=== PATIENT | female | born 1945 | race Caucasian/White ===

== ENCOUNTER 2024-12-15 08:59 | Outpatient (AMB) | payer OTHER, SELFPAY ==
--- NOTE | 2024-12-15 09:02 | MHC.OFFVIS ---
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 The tremors are roger hands with posture action and rest. she drops things from her hands , has trouble with writing and other daily activities. But she manages to function. she has rheumatoid arthritis. No change in voice . No head injury . No exposure of reglan or any antipsychotics. Gait- slow and had back pain [facility] Medical History (Updated 12/15/24 @ 11:00 by Ani Wadsworth MD) Essential and other specified forms of tremor Hyperthyroidism Bone spur Hernia Rheumatoid arthritis Surgical History (Updated 12/15/24 @ 09:[address] MA) S/P arthroscopy of left shoulder S/P tonsillectomy Hx of fusion of cervical spine H/O: hysterectomy Social History (Updated 12/15/24 @ 09:[address] MA) Patient Tobacco Use Status: Former Tobacco user Physical Exam Vital Signs: Last Vital Signs Pulse 90 12/15/24 09:04 BP 122/74 12/15/24 09:04 Pulse Ox 96 12/15/24 09:04 Oxygen Delivery Method Room Air 12/15/24 09:04 BMI result Body Mass Index 26.3 Const General: cooperative and comfortable Nutritional Appearance: average body habitus Orientation/consciousness: patient oriented x3 Neuro Other: No ROM neck mild lower lip and chin tremors Rest tremors right UE Roger action and postural R>L tremors No cog wheel rigidity FFM and foot taps - good General: patient oriented x3, tone normal, moves all extremities and no focal motor deficits Cranial nerves: Yes Bilaterally intact EOM present, Yes Nystagmus not present, Yes Normal facial strength present and Yes Midline tongue present Cognition (Neuro): normal cognition Gait exam (Neuro): Antalgic gait present Motor exam (neuro): 5/5 motor strength present throughout and Normal motor muscle tone present throughout Deep tendon reflexes (DTR's): Right triceps reflex intensity grade: 1+, Left triceps reflex intensity grade: 1+, Rt Biceps (C5, C6): 1+, Left biceps reflex intensity grade: 1+, Right brachioradialis reflex intensity grade: 1+, Left brachioradialis reflex intensity grade: 1+, Right patellar reflex intensity grade: 1+ and Left patellar reflex intensity grade: 1+ Coordination: [id number] test normal Assessment & Plan Assessment & Plan (1) Essential and other specified forms of tremor: Comment: no evidence of parkinsons Code(s): G25.0 - Essential tremor; G25.2 - Other specified forms of tremor Category: Medical Plan I will trial her on propranolol 10 mg bid . side effects discussed will consider occupational therapy Medications: New propranolol 10 mg PO BID 60 tabs 3RF propranolol 10 mg PO BID 60 tabs 3RF Coding Level of Care Code New Pt Level 4 (05017) Diagnoses Essential and other specified forms of tremor G25.0; G25.2 BFADL Questionnaire: Cut food with a knife and fork: 2 - Able to do activity with a little effort, Use a spoon to drink soup: 3 - Able to do activity with a lot of effort, Hold a cup of tea: 2 - Able to do activity with a little effort, Pour milk from a bottle or carton: 2 - Able to do activity with a little effort, Wash and dry dishes: 3 - Able to do activity with a lot of effort, [place] your teeth: 2 - Able to do activity with a little effort, Use a handkerchief to blow your nose: 2 - Able to do activity with a little effort, Use the lavoratory: 2 - Able to do activity with a little effort, Wash your face and hands: 2 - Able to do activity with a little effort, Tie your shoelaces: 2 - Able to do activity with a little effort, Do up buttons: 2 - Able to do activity with a little effort, Do up a zip: 2 - Able to do activity with a little effort, Write a letter: 3 - Able to do activity with a lot of effort, Put a letter in an envelope: 3 - Able to do activity with a lot of effort, Hold and read a newspaper: 4 - Cannot do the activity by yourself, Dial a telephone: 2 - Able to do activity with a little effort, Make yourself understood on a telephone: 1 - Able to do activity without difficulty, Watch television: 1 - Able to do activity without difficulty, elevator supervisor your change in a shop: 3 - Able to do activity with a lot of effort, Inset an electrical plug into a socket: 3 - Able to do activity with a lot of effort, Unlock your front door with a scott: 2 - Able to do activity with a little effort, Walk up and down stairs: 2 - Able to do activity with a little effort, Get up out of an armchair: 3 - Able to do activity with a lot of effort and Carry a full shopping ba - Able to do activity with a lot of effort
[2024-12-15 09:04] VITALS: BP 122/74; PULSE 90; O2SAT 96; BMI 26.3
--- OUTSIDE RECORDS SUMMARY | 2024-12-15 09:19 | XMS_ITS | Patient Health Record ---
Author Organization [facility] Tanesha hal [place] Address [address] [place] [address] Care Team Providers Care Circulation Librarian Name Role Phone Dl Ramos MD Primary Care Provider UnavailElvira Coombs Unavailable [phone] Allergies No Known Allergies Reason For Referral Diagnosis 1 Tinea unguium (B35.1 ) Diagnosis 2 Ingrown nail (L60.0) Diagnosis 3 Xerosis of skin (L85 .3) Diagnosis 4 Pain in right toe(s) (M79.674) Diagnosis 5 Pain in left toe(s) (M79.675) Diagnosis 6 Other hammer toe(s) (acquired), left foot (M20.42) Diagnosis 7 Bunionette of left f oot (M21.622) Diagnosis 8 Rheumatoid arthritis with rheumatoid factor of right ankle and foot without organ or systems involvement (M05.771) Diagnosis 9 Exostosis (M89.8X9) Diagnosis 10 Right foot pain (M79 .671) Diagnosis 11 Ganglion, left ankle and foot (M67.472) Referring Provider First Name Dl Referring Provider Last Name Richard [facility]erred Provider Elvira Bangura Referred Address [address] [place], [place],[address],[place] Referred Provider Specialty Podiatry Referral Priority Routine Medications Medication SIG (Take, Route, Frequency, Duration) Notes Start Date End Date Status methIMAzole 5 MG 1/2 tablet Orally On ce a day Active Diclofenac Sodium 1 % as directed Transd ermal Twice a day; Duration: 30 days Active Humira Pen 40 MG/0.8ML as directed Subcutaneous Active Lidocaine 5 % 1 application as nee ded Externally Three times a day 02/23/2024 Active Diclofenac Sodium 1 % 1 application Exte rnally 2-4 grams BID not to exceed 8 grams; Duration: 90 days Active PreserVision AREDS 2 Active Diclofenac Sodium 1 % 1 application Exte rnally Twice a day; Duration: 90 days Not-Taking Ammonium Lactate 12 % 1 application Exte rnally to affected areas of dry skin to feet except for between the toes Twice a day; Duration: 30 days Active Tylenol 8 Hour 650 MG 4 tablets as neede d Orally every 8 hrs Active Shaneka Allergy 180 MG 1 tablet Orally O nce a day; Duration: 30 day(s) Active Simvastatin 10 MG 1 tablet in the even ing Orally Once a day; Duration: 30 day(s) Active Omeprazole 20 MG 1 capsule 30 minutes before morning meal Orally Once a day; Duration: 30 day(s) Active Immunizations Vaccine Route Administration Date Status Comme nts COVID-19 Moderna Vaccine Unknown 12/16/2020 Administered 1st dose 06/06/2020 Second Dose: 07/04/2020 Social History Tobacco Use: Social History Observation Description Date Details (start date - stop date) Never Smoker NA - NA Tobacco use other than smoking: Question Answer Notes Are you an other tobacco user? No Tobacco Control (Standard) Question Answer Notes Tobacco use: Nonsmoker Additional Findings: Tobacco non-user Current no nsmoker AUDIT-C (Standard) Question Answer Notes Did you have a drink containing alcohol in the p ast year? No Points 0 Interpretation Negative Problems Problem Type SNOMED Code ICD Code Onset Dates Problem Status W/U Status Risk Notes Problem Acquired hammer toe of right foot (2289419222097728) Other hammer toe(s) (acquired), right foot (M20.41) Active confirmed Problem Rheumatoid arthritis (09934795) Rheumatoid arthritis with rheumatoid factor of right ankle and foot without organ or systems involvement (M05.771) Active confirmed Problem Tinea unguium (993229694) Tinea unguium (B35.1) Active confirmed Problem Localized, primary osteoarthritis of the ankle and/or foot (905547178) Arthritis of joint of lesser toe, left (M19.072) Active confirmed Problem Localized, primary osteoarthritis of the ankle and/or foot (443901415) Arthritis of joint of lesser toe, right (M19.071) Active confirmed Vital Signs Blood pressure diastolic 60 mm Hg 12/09/2024 Height 5ft 4in in 12/09/2024 Blood pressure systolic 110 mm Hg 12/09/2024 Weight 160 lbs 12/09/2024 BMI 27.46 kg/m2 12/09/2024 Procedures Procedure Date Ordered Date Performed Result Body Sit e 55178-EGKENKB NAIL, 1-5 02/23/2024 N/A 83659-QMJUWXU NAIL, 1-5 05/31/2024 N/A 07644-VISLBIZ NAIL, 1-5 08/30/2024 N/A 17787-Vkjzrlhr Plate 08/30/2024 N/A 60483-KZJSSHB NAIL, 6 OR MORE 12/09/2024 N/A Encounters Encounter Location Date Provider Diagnosis [address] [address] 02/23/2024 Elvira Black Rheumatoid arthritis flare M06.9 ; Right foot pain M79.671 ; Plantarflexion deformity of right foot M21.6X1 ; Tinea unguium B35.1 ; Pain in right toe(s) M79.674 ; Pain in left toe(s) M79.675 ; Hypertrophy of bone, left ankle and foot M89.372 ; Exostosis M89.8X9 ; 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 671 ; Osteoarthritis of right ankle and foot M19.071 ; Tinea unguium B35.1 ; Pain in right toe(s) M79.674 ; Pain in left toe(s) M79.675 ; Exostosis M89.8X9 and Xerosis of skin L85.[address] [address] 08/30/2024 Elvira Black Tinea unguium B35.1 ; Ingrown nail L60.0 ; Pain in right toe(s) M79.674 ; Pain in left toe(s) M79.675 and Xerosis of skin L85.3 [facility] [address] [place] [address] 12/09/2024 Elvira Black Tinea unguium B35.1 ; Achilles tendinitis of right lower extremity M76.61 ; Pain in right toe(s) M79.674 ; Pain in left toe(s) M79.675 ; Pain of right heel M79.671 ; Short Achilles tendon (acquired), 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 ; Achilles tendinitis of left lower extremity M76.62 ; Pain of left heel M79.672 ; Short Achilles tendon (acquired), left ankle M67.02 ; Other hammer toe(s) (acquired), right foot M20.41 ; Arthritis of joint of lesser toe, right M19.071 ; Other hammer toe(s) (acquired), left foot M20.42 ; Arthritis of joint of lesser toe, left M19.072 ; Subluxation of metatarsophalangeal joint of toe, initial encounter S93.149A and Rheumatoid arthritis with rheumatoid factor of right ankle and foot without organ or systems involvement M05.771 Assessments Encounter Date Diagnosis (ICD Code) Assessment Notes Treatment Notes Treatment Clinical Notes Section Notes 02/23/2024 Right foot pain (ICD -10 - M79.671) 02/23/2024 Rheumatoid arthritis flare (ICD-10 - M06.9) 05/31/2024 Right foot pain (ICD -10 - M79.671) 05/31/2024 Osteoarthritis of ri ght ankle and foot (ICD-10 - M19.071) 08/30/2024 Tinea unguium (ICD-1 0 - B35.1) 08/30/2024 Ingrown nail (ICD-10 - L60.0) 12/09/2024 Tinea unguium (ICD-1 0 - B35.1) 12/09/2024 Achilles tendinitis of right lower extremity (ICD-10 - M76.61) Patient Educated with: HEEL CORD STRETCHES.pdf (HEEL CORD STRETCHES.pdf ) Patient Educated with: RICE THERAPY.pdf (RICE THERAPY.pdf) 12/09/2024 Pain in right toe(s) (ICD-10 - M79.674) 02/23/2024 Plantarflexion deformity of right foot (ICD-10 - M21.6X1) 08/30/2024 Pain in right toe(s) (ICD-10 - M79.674) 05/31/2024 Tinea unguium (ICD-1 0 - B35.1) 02/23/2024 Tinea unguium (ICD-1 0 - B35.1) 05/31/2024 Pain in right toe(s) (ICD-10 - M79.674) 08/30/2024 Pain in left toe(s) (ICD-10 - M79.675) 12/09/2024 Pain in left toe(s) (ICD-10 - M79.675) 12/09/2024 Pain of right heel (ICD-10 - M79.671) 08/30/2024 Xerosis of skin (ICD -10 - L85.3) 05/31/2024 Pain in left toe(s) (ICD-10 - M79.675) 02/23/2024 Pain in right toe(s) (ICD-10 - M79.674) 02/23/2024 Pain in left toe(s) (ICD-10 - M79.675) 05/31/2024 Exostosis (ICD-10 - M89.8X9) 12/09/2024 Short Achilles tendo n (acquired), right ankle (ICD-10 - M67.01) 12/09/2024 Achilles tendinitis of left lower extremity (ICD-10 - M76.62) Patient Educated with: HEEL CORD STRETCHES.pdf (HEEL CORD STRETCHES.pdf ) Patient Educated with: RICE THERAPY.pdf (RICE THERAPY.pdf) 02/23/2024 Hypertrophy of bone, left ankle and foot (ICD-10 - M89.372) 05/31/2024 Xerosis of skin (ICD -10 - L85.3) 02/23/2024 Exostosis (ICD-10 - M89.8X9) 12/09/2024 Pain of left heel (ICD-10 - M79.672) 12/09/2024 Short Achilles tendo n (acquired), left ankle (ICD-10 - M67.02) 02/23/2024 Acquired hallux interphalangeus of left foot (ICD-10 - M20.12) 12/09/2024 Other hammer toe(s) (acquired), right foot (ICD-10 - M20.41) 02/23/2024 Rheumatoid nodules (ICD-10 - M06.30) 02/23/2024 Ganglion cyst of lef t foot (ICD-10 - M67.472) 12/09/2024 Arthritis of joint o f lesser toe, right (ICD-10 - M19.071) 12/09/2024 Other hammer toe(s) (acquired), left foot (ICD-10 - M20.42) 12/09/2024 Arthritis of joint o f lesser toe, left (ICD-10 - M19.072) 12/09/2024 Subluxation of metatarsophalangeal joint of toe, initial encounter (ICD-10 - S93.149A) 12/09/2024 Rheumatoid arthritis with rheumatoid factor of right ankle and foot without organ or systems involvement (ICD-10 - M05.771) Plan Of Treatment Pending Test Test Name Order Date [id number]-IOIUAGZ NAIL, 6 OR MORE 05/18/2020 89836-HSBGFJC NAIL, 6 OR MORE 08/17/2020 32702-TGRJHIH NAIL, 6 OR MORE 11/16/2020 23743-CXROVMR NAIL, 6 OR MORE 02/22/2021 54287-HBSPIQN NAIL, 6 OR MORE 06/04/2021 29235-BGWYCSU NAIL, 6 OR MORE 09/06/2021 58839-GXNKGLN NAIL, 6 OR MORE 12/20/2021 72015-VVYKSCU NAIL, 6 OR MORE 03/25/2022 16667-NVEDCEX NAIL, 6 OR MORE 07/01/2022 78509-HMARKZZ NAIL, 6 OR MORE 10/10/2022 83287-WAYXPTZ NAIL, 6 OR MORE 01/20/2023 17327-JMFXTES NAIL, 6 OR MORE 12/09/2024 34506-VXACDXJ NAIL, 1-5 08/30/2024 78430-PMIIHKF NAIL, 1-5 08/07/2023 73124-WZYZQHS NAIL, 1-5 11/13/2023 16890-ERWIGTU NAIL, 1-5 02/23/2024 96450-AKKPGZW NAIL, 1-5 05/31/2024 35729-Swsrjqvl Plate 08/30/2024 25118-Slpbesba Plate 01/20/2023 16174-Czbrraqm Plate Each Additional 10814- Debride <25 sq cm 03/25/2022 44613, P3102-YHCLC/INJECT, JOINT/BURSA 0 10/10/2022 Next Appt Details Provider Name:Elvira Bangura , 02/10/2025 08:00:00 AM, [address] [place], [address], Insurance Providers Payer Name Payer Address Payer Phone Subscriber Number Group Number Insured Name Patient Relationship to Insured Coverage Start Date Coverage End Date [facility] Plan [address] [place] [address] [phone] [id number] Olga Kearney Self - patient is the insured Medical (General) History Medical History History ICD Code Arthritis Diverticulosis Psoriasis/eczema Reflux ( GERD) thyroid Measles Mumps Chicken pox Supraventricular tachycardia Other hammer toe(s) (acquired), left lita t M20.42 Other hammer toe(s) (acquired), right fo ot M20.41 Rheumatoid arthritis with rh eumatoid factor of right ankle and foot without organ or systems involvement M05.771 Rheumatoid nodule M06.30 Hammer toe of right foot M20.41 Arthritis M19.90 Rheumatoid arthritis flare M06.9 Osteoarthritis of right ankle and foot M 19.071 Ganglion cyst of left foot M67.472 Surgical History Surgery Date(Month/Year) hysterectomy 1992 neck fusion 1994 hernia 2002 tonsillectomy 2007 Bone Spurs 2009
--- OUTSIDE RECORDS SUMMARY | 2024-12-15 09:20 | XMS_ITS | Clinical Summary ---
Author Organization [facility] [address] [place] [address] [place] [phone] Phone Care Team Providers Care Tsa Screener Name Role Phone Jaspal Ramos MD Primary Care Provider Allergies No known active allergies Medications adalimumab (Humira,CF, Pen) 40 mg/0.4 mL pen Inject 40 mg as directed every 14 days. - Injection 1 Active diclofenac (VOLTAREN) 1 % topical gel Apply topically as needed. - Apply externally Active hydrocortisone 2.5 % ointment APPLY TWICE DAILY TO AFFECTED AREA ON THE LEFT EAR, UNTIL IMPROVED. 3 Active ketoconazole (NIZORAL) 2 % cream Apply to area bid 3 Active methIMAzole (TAPAZOLE) 5 mg tablet Take 2.5 mg by mouth. Active mupirocin (BACTROBAN) 2 % cream To affected area TID 3 Active psyllium (METAMUCIL) powder Psyllium (METAMUCIL MULTIHEALTH FIBER OR) Sig - Route: Take 1 Each by mouth daily. One tablespoonful daily Active vit A/vit C/vit E/zinc/copper (PRESERVISION AREDS ORAL) Take by mouth. Act kaye cromolyn (OPTICROM) 4 % ophthalmic solution PLACE 1 DROP INTO BOTH EYES 4 TIMES DAILY. 10 mL 1 5 Active fluticasone propionate (FLONASE) 50 mcg/actuation nasal spray Administer 2 sprays into each nostril 1 (one) time each day. Shake gently. Before first use, prime pump. After use, clean tip and replace cap. 16 g 2 5 10/21/19 26 Active omeprazole (PriLOSEC) [address] capsule Take 1 capsule (20 mg total) by mouth 1 (one) time each day. TAKE 1 CAPSULE BY MOUTH DAILY 90 each 1 5 Active simvastatin (ZOCOR) 10 mg tablet Take 1 tablet (10 mg total) by mouth at bedtime. at bedtime. 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 Onset . Hydroxychloroquine and methotrexate not that helpful. Good response to Humira ~ 2010, Humira held in 2013 because of infection. Synovitis remained reasonably well controlled after that until late 2014 MCP and MTP erosive disease Humira restarted 06/2015 Follows [facility] now Asthma 07/11/2023 Rheumatoid arthritis involvi ng multiple sites with positive rheumatoid factor ([facility] V24, [facility] V28) 02/04/2023 Overview (07/11/2023): Last Assessment & Plan: Seropositive rheumatoid arthritis well-controlled on Humira every other week with no stiffness or swelling. Continue with same dose. Sent her for some baseline labs today. Also sent in refills for Humira. 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 She is right-hand dominant. Suggested she try Salonpas with lidocaine in a roll-on applicator. Toxic multinodular goiter 10/29/2022 Overview (02/04/2024): Dx in 1992. Right mid and left mid autonomously functioning nodules. FNA 11/2010 of left 3 cm nodule which had increased uptake on I-123 scan in 01/2010 and even in 1992 had benign follicular cells, colloid and hemosiderin laden macrophages. On low-dose methimazole since 07/2011. Saw Dr. Laws in 09/2011 to discuss possible total thyroidectomy. Patient prefers antithyroid medication. Last Assessment & Plan: Dx in 1992. Right mid and left mid autonomously functioning nodules. FNA in 11/2010 of the left 3 cm nodule which had increased uptake on I-123 scan in 01/2010 and even in 1992 had benign follicular cells, colloid and hemosiderin laden macrophages. On low-dose methimazole since 07/2011. Saw Dr. Laws in 09/2011 to discuss possible total thyroidectomy. Patient prefers antithyroid medication. Clinically euthyroid on 2.5 mg methimazole daily. TSH was 1.21 with normal thyroid hormone levels in 09/2022. Last TSH done about 3 weeks ago, waiting for result. No compression symptoms in the thyroid bed. Plan to continue current treatment. Will call patient with TSH resolved after received. Repeat TFTs in 6 months. Reviewed symptoms of hypo and hyperthyroidism, patient to call if concerned. Last ultrasound in 03/2022 was stable. May repeat ultrasound in few years. Intention tremor 06/14/2020 Osteoarthritis of right knee 10/11/2016 Microscopic hematuria 06/07/2015 Overview (07/11/2023): Negative cysto 2015 PSVT (paroxysmal supraventri cular tachycardia) (CMS/HCC V24) 03/21/2015 Hyperthyroidism 03/21/2015 Thyroid nodule 03/21/2015 Overview (07/11/2023): Follows with [facility] 6mth basis SVT (supraventricular tachycardia) (CMS/HCC V24) 03/13/2015 Seborrheic dermatitis 04/11/2014 Overview (07/11/2023): Seborrheic dermatitis Sjogren's disease ([facility] V24) 02/25/2013 Diverticulitis of colon 11/06/2009 Overview (02/04/2024): (without mention of hemorrhage) History of diverticulitis approximately 1999. Encounters Date Type Department Care Team Description 10/20/2024 9:00 AM EDT Office Visit Adult Medicine [address] [phone] Kendell Carrington PA Routine history and physical examination of adult (Primary Dx); Vitamin deficiency; Rheumatoid arthritis involving multiple sites with positive rheumatoid factor ([facility] V24, [facility] V28); Postmenopausal; High cholesterol; Gastroesophageal reflux disease, unspecified whether esophagitis present; Hyperthyroidism from Last 3 Months Immunizations Name Administration Dates Next Due Influenza Quadravalent, MDCK , 0.5ml, with preservative (Flucelvax) 6mo and older 01/24/2014,01/24/2012 Influenza Quadrivalent, with preservative (Fluzone; Afluria) 6mo and older 03/14/2017 Influenza trivalent, 0.5mL ( Fluzone High-dose) 65yo and older 02/05/2024,01/16/2021,01/04/2020,02/13,02/05/2016,02/02/2015 Influenza, Unspecified 02/03/2022 Moderna SARS-CoV-2 COVID-19, mRNA, LNP-S, preservative free 12/16/2020,07/04/2020,06/06/2020 Pneumococcal conjugate 13 va lent (Prevnar 13, PCV13) 2mo and older 01/03/2016 Pneumococcal polysaccharide 23 valent (Pneumovax 23) 2yo and older 11/03/2013 RSV, bivalent, protein subun it RSVpreF, 0.5mL, Preservative Free (Arexvy) 60yo and older 02/27/2023 Tdap Tetanus diptheria acell ular pertussis (Boostrix; Adacel) 7yo and older 03/21/2024,03/13/2012 Zoster Live 08/24/2014 Zoster recombinant (Shingrix ) 19yo and older 10/07/2022,08/06/2022,11/16/2018,08/21 Surgical History Surgery Date Site/Laterality Comments NECK SURGERY PROCEDURE: HISTORICAL NECK SURGERY; COMMENT: fusion HERNIA REPAIR PROCEDURE: HISTORICAL HERNIA REPAIR/MARISSA; COMMENT: 2nd to abd surgery TONSILLECTOMY PROCEDURE: HISTORICAL TONSILLECTOMY; COMMENT: 2006 COLONOSCOPY 11/06/2009 PROCEDURE: [place] COLONOSCOPY FLX DX W/COLLJ SPEC WHEN PFRMD; COMMENT: diverticulosis CATARACT EXTRACTION PROCEDURE: HISTORICAL CATARACT REMOVAL; COMMENT: bilateral SHOULDER SURGERY 2009 PROCEDURE: HISTORICAL SHOULDER SURGERY; COMMENT: left Medical History Medical History Date Comments Asthma DX:Asthma Allergic rhinitis DX:Allergic rh initis High cholesterol DX:High cholest marycruz Rheumatoid arthritis(714.0) DX:R heumatoid arthritis(714.0) GERD (gastroesophageal reflux disease) DX:GERD (gastroesophageal reflux disease) Diverticulitis of colon (wit hout mention of hemorrhage)(562.11) 11/06/2009 DX:Diverticulitis of colon ( without mention of hemorrhage)(562.11) Microscopic hematuria 06/07/2015 DX:Microsc opic hematuria Constipation DX:Constipation Abnormal large bowel motility DX :Abnormal large bowel motility Family History Medical History Relation Name Comments Glaucoma Aunt Macular degeneration Aunt Heart attack Father Diabetes Maternal Grandmother Breast cancer Other mat cousin cousin on moth ers side Other cancer Paternal Grandmother Cataracts Sister 1 Glaucoma Sister 1 Colon polyps Sister 2 dx age 60 Colon cancer Neg Hx Ovarian cancer Neg Hx Relation Name Status Comments Aunt Father Maternal Grandmother Other mat cousin Paternal Grandmother Sister 1 Sister 2 Social History Tobacco Use Types Packs/Day Years Used Date Smoking Tobacco: Former Cigarettes Q uit: 05/05/1978 Smokeless Tobacco: Never Alcohol Use Standard Drinks/Week Comments Not Currently 0 (1 standard drink = 0.6 oz pur e alcohol) Housing Instability Answer Date Recorde d Are you worried that in the next 2 months you may not have stable housing? No 10/20/2024 Food Access & Nutrition Answer Date Rec orded Do you have access to a vari ety of food including fruits and vegetables? Yes 10/20/2024 Access to Healthcare Answer Date Record ed Within the last 3 months, ho w many times did you visit the emergency department for your medical care? 0 10/20/2024 Health Literacy Answer Date Recorded How often do you need to hav e someone help you when you read instructions, pamphlets, or other written material from your doctor or pharmacy? Never 10/20/2024 Caregiver: How often do you need to have someone help you when you read instructions, pamphlets, or other written material from your doctor or pharmacy? Not on file 10/20/2024 Financial Risk Answer Date Recorded How hard is it for you to pa y for the very basics like food, housing, medical care, and air conditioning / heating? Not very hard 10/20/2024 Transportation Answer Date Recorded Has the lack of transportati on kept you from meetings, work, or from getting things needed for daily living? No Has the lack of transportati on kept you from medical appointments or from getting medications? No 10/20/2024 Social Isolation Answer Date Recorded How often do you feel lonely or isolated from th ose around you? Never 10/20/2024 Food Risk Answer Date Recorded Within the past 12 months we worried whether our food would run out before we got money to buy more. Never true 10/20/2024 Within the past 12 months th e food we bought just didn't last and we didn't have money to get more. Never true 10/20/2024 Dependent Care Answer Date Recorded Do you need help finding or paying for care for your loved ones. For example, children's zoo caretaker or elderly care for an older adult? No 10/20/2024 Education Answer Date Recorded Do you think completing more education or training, like finishing a GED, going to college, or learning a trade, would be helpful for you? N/A 10/20/2024 Employment and Income Answer Date Recor ded During the last four weeks, have you been actively looking for work? No 10/20/2024 Living Situation Answer Date Recorded What is your living situation? 0 10/20/2024 Comments Unknown Sex and Gender Information Value Date Recorded Sex Assigned at Not on file Legal Sex Female 6:08 PM EST Gender Identity Not on file Sexual Orientation Not on file Obstetrics History Last Filed Vital Signs Vital Sign Reading Time Taken Comments Blood Pressure 132/70 10/20/2024 8:40 AM EDT Pulse 88 10/20/2024 8:40 AM EDT Temperature 36 C (96.8 F) 10/20/2024 8:40 AM EDT Respiratory Rate 16 10/20/2024 8:40 AM EDT Oxygen Saturation 95% 10/20/2024 8:40 AM EDT Inhaled Oxygen Concentration - - Weight 73 kg (161 lb) 10/20/2024 8:40 AM EDT Height 162.6 cm (5' 4 ) 10/20/2024 8:40 AM EDT Body Mass Index 27.64 10/20/2024 8:40 AM EDT Plan of Treatment Upcoming Encounters Date Type Department Care Team (Late st Contact Info) Description 02/03/2025 10:20 AM EDT Office Visit [facility] [address] [facility] [address] [place] [phone] Bonny Ponce MD [address] [facility] [address] [place] [address] 03/23/2025 9:15 AM EST Appointment Bone Density - [address] [phone] 05/31/2025 8:30 AM EST Office Visit Adult Medicine [facility] - [address] [phone] Jaspal Ramos MD [address] [place] [phone] Health Maintenance Due Date Last Done Comments Falls Risk Assessment 05/13/2023 05/13/2022 Medicare Annual Wellness Visit 05/13/2023 05/13/2022 Colorectal Cancer Screening: Stool Based Tests (FOBT/FIT) 07/11/2023 04/30/2021 COVID-19 Vaccine (8 - Moderna risk season) 2024 02/05/2024, 01/20/2023, 02/03/2022, Additional history exists Influenza Vaccine (#1) 2025 , 01/12/2023, 02/03/2022, Additional history exists Social Influencers of Health Screening 10/20/2025 10/20/2024 Cholesterol Screening (Lipid Panel) 10/20/2029 10/20/2024, 11/20/2022, 11/20/2022 Osteoporosis Screening (Bone Density Screening) 04/02/2033 04/02/2018 DTaP,Tdap,and Td Vaccines (3 - Td or Tdap) 03/21/2034 03/21/2024, 03/13/2012 Pneumococcal Vaccine: 50+ Years Completed 01/03/2016, 11/03/2013 Zoster Vaccines Completed 10/07/2022, 04/08/2022, 11/16/2018, Additional history exists Hepatitis C Screening Completed 12/16/2022 , 06/14/2020, 06/14/2020 RSV Immunization Adult Patients Completed 02/27/2023 Colorectal Cancer Screening: FIT-DNA (Cologuard) Discontinued 06/18/2023, 06/18/2023, 06/18/2023 Breast Cancer Screening Discontinued 03/04/20 24, 03/04/2024, 03/13/2023, Additional history exists Depression Screening Completed 10/20/2024 HIB Vaccines Aged Out No longer eligi ble based on patient's age to complete this topic HPV Vaccines Aged Out No longer eligi ble based on patient's age to complete this topic Hepatitis A Vaccines Aged Out No long er eligible based on patient's age to complete this topic Hepatitis B Vaccines Aged Out No long er eligible based on patient's age to complete this topic IPV Vaccines Aged Out No longer eligi ble based on patient's age to complete this topic MMR Vaccines Aged Out No longer eligi ble based on patient's age to complete this topic Meningococcal ACWY Vaccine Aged Out N o longer eligible based on patient's age to complete this topic Meningococcal B Vaccine Aged Out No l onger eligible based on patient's age to complete this topic RSV Immunization Patients Under 20 months Aged Out No longer eligible based on patient's age to complete this topic Varicella Vaccines Aged Out No longer eligible based on patient's age to complete this topic Procedures Procedure Name Priority Date/Time Associated Diagnosis Comments COMPLETE BLOOD COUNT Routine 10/20/2024 9:30 AM EDT Routine history and physical examination of adult LIPID PANEL WITH REFLEX TO DIRECT LDL Routine 10/20/2024 9:30 AM EDT Routine history and physical examination of adult BASIC METABOLIC PANEL Routine 10/20/2024 9:30 AM EDT Routine history and physical examination of adult VITAMIN B12 Routine 10/20/2024 9:30 AM EDT Vitamin deficiency MAGNESIUM Routine 10/20/2024 9:30 AM EDT Vitamin deficiency EXTERNAL CLINICAL LAB 09/29/2024 EXTERNAL CLINICAL LAB 09/29/2024 SCREENING MAMMOGRAPHY BI 2-VIEW BREAST INC CAD Routine 03/04/2024 7:43 AM EDT Encounter for screening mammogram for malignant neoplasm of breast FIT-DNA Routine 06/18/2023 HEPATITIS C SCREENING Routine 06/14/2020 DXA BONE DENSITY STUDY 1+ SITS AXIAL SKEL Routine 04/02/2018 9:30 AM EST Rheumatoid arthritis with rheumatoid factor, unspecified (CMS/HCC V24, CMS/HCC V28) from Last 3 Months or Most Recently Relevant to Health Maintenance Results * (ABNORMAL) Lipid panel with reflex to direct LDL (10/20/2024 9:30 AM EDT) Cholesterol 205(H) 0 - 200 mg/dL LAB CHEMISTRY METHOD 10/20/2024 2:12 PM EDT [facility] Triglycerides 339(H) 0 - 150 mg/dL LAB CHEMISTRY METHOD 10/20/2024 2:12 PM EDT [facility] HDL 42 >=40 mg/dL LAB CHEMISTRY METHOD 10/20/2024 2:12 PM EDT [facility] LDL Calculated 95 0 - 100 mg/dL LAB CHEMISTRY METHOD 10/20/2024 2:12 PM EDT [facility] VLDL Cholesterol Scot 67.8 mg/dL LAB CHEMISTRY METHOD 10/20/2024 2:12 PM EDT [facility] Non HDL Chol. (LDL+VLDL) 163(H) <145 mg/dL LAB CHEMISTRY METHOD 10/20/2024 2:12 PM EDT [facility] Chol/HDL Ratio 4.9(H) 0.0 - 4.4 LAB CHEMISTRY METHOD 10/20/2024 2:12 PM EDT [facility] Blood Venous blood specimen / Unknown Venipuncture / Unknown 10/20/2024 9:30 AM EDT 10/20/2024 9:30 AM EDT Kendell CHIRINOS LAB BLOOD ORDERABLES Fi nal Result [facility] [address] [place] [address], * (ABNORMAL) Complete blood count (10/20/2024 9:30 AM EDT) WBC 9.5 4.8 - 10.8 K/mcL LAB HEMETOLOGY METHOD 10/20/2024 12:31 PM [facility] RBC 4.60 3.80 - 4.80 M/mcL LAB HEMETOLOGY METHOD 10/20/2024 12:31 PM EDT [facility] Hemoglobin 12.8 11.5 - 16.0 g/dL LAB HEMETOLOGY METHOD 10/20/2024 12:31 PM [facility] Hematocrit 41.1 35.0 - 47.0 % LAB HEMETOLOGY METHOD 10/20/2024 12:31 PM T [facility] MCV 89.0 79.0 - 98.0 FL LAB HEMETOLOGY METHOD 10/20/2024 12:31 PM T [facility] MCH 27.7 27.0 - 32.0 pcg LAB HEMETOLOGY METHOD 10/20/2024 12:31 PM EDT [facility] MCHC 31.1(L) 32.0 - 37.0 g/dL LAB HEMETOLOGY METHOD 10/20/2024 12:31 PM EDT [facility] RDW 14.9 11.0 - 15.0 % LAB HEMETOLOGY METHOD 10/20/2024 12:31 PM EDT [facility] Platelets 416(H) 130 - 400 K/mcL LAB HEMETOLOGY METHOD 10/20/2024 12:31 PM EDT [facility] MPV 9.6 7.0 - 11.0 FL LAB HEMETOLOGY METHOD 10/20/2024 12:31 PM EDT [facility] NRBC 0.0 <1.0 % LAB HEMETOLOGY METHOD 10/20/2024 12:31 PM EDT [facility] NRBC Absolute 0.00 <0.10 K/mcL LAB HEMETOLOGY METHOD 10/20/2024 12:31 PM EDT [facility] Blood Venous blood specimen / Unknown Venipuncture / Unknown 10/20/2024 9:30 AM EDT 10/20/2024 9:30 AM EDT Kendell CHIRINOS LAB BLOOD ORDERABLES Fi nal Result [facility] [address] [place] [address], * Magnesium (10/20/2024 9:30 AM EDT) Magnesium 2.4 1.9 - 2.6 mg/dL LAB CHEMISTRY METHOD 10/20/2024 1:38 PM EDT [facility] Blood Venous blood specimen / Unknown Venipuncture / Unknown 10/20/2024 9:30 AM EDT 10/20/2024 9:30 AM EDT Kendell Carrington [place] LAB BLOOD ORDERABLES Fi nal Result Performing Organization Address City/[facility]/ZIP Co de Phone Number [facility] [address] [place] [address], [place] [phone] * Vitamin B12 (10/20/2024 9:30 AM EDT) [facility] Vitamin B-12 653 250 - 900 pcg/mL LAB CHEMISTRY METHOD 10/20/2024 2:12 PM EDT [facility] Blood Venous blood specimen / Unknown Venipuncture / Unknown 10/20/2024 9:30 AM EDT 10/20/2024 9:30 AM EDT Kendell Carrington [place] LAB BLOOD ORDERABLES Fi nal Result Performing Organization Address City/[facility]/ZIP Co de Phone Number [facility] [address] [place] [address], [place] [phone] * (ABNORMAL) Basic metabolic panel (10/20/2024 9:30 AM EDT) [facility] Sodium 136 133 - 145 mmol/L LAB CHEMISTRY METHOD 10/20/2024 2:12 PM EDT [facility] Potassium 5.0 3.5 - 5.5 mmol/L LAB CHEMISTRY METHOD 10/20/2024 2:12 PM EDT [facility] Chloride 101 96 - 110 mmol/L LAB CHEMISTRY METHOD 10/20/2024 2:12 PM EDT [facility] CO2 29 21 - 32 mmol/L LAB CHEMISTRY METHOD 10/20/2024 2:12 PM EDT [facility] Anion Gap 6 3 - 11 LAB CHEMISTRY METHOD 10/20/2024 2:12 PM EDT [facility] Glucose 111(H) 70 - 100 mg/dL LAB CHEMISTRY METHOD 10/20/2024 2:12 PM EDT [facility] BUN 20 5 - 25 mg/dL LAB CHEMISTRY METHOD 10/20/2024 2:12 PM EDT [facility] Creatinine 0.68 0.50 - 1.10 mg/dL LAB CHEMISTRY METHOD 10/20/2024 2:12 PM EDT [facility] eGFR 90 >=60 mL/min/1. 73m2 LAB CHEMISTRY METHOD 10/20/2024 2:12 PM EDT [facility] Comment:Calculation based on the Chronic Kidney Disease Epidemiology Collaboration (CKD-EPI) equation refit without adjustment for race. BUN/Creatinine Ratio 29.4 LAB CHEMISTRY METHOD 10/20/2024 2:12 PM EDT [facility] Calcium 9.7 8.5 - 10.5 mg/dL LAB CHEMISTRY METHOD 10/20/2024 2:12 PM EDT [facility] Blood Venous blood specimen / Unknown Venipuncture / Unknown 10/20/2024 9:30 AM EDT 10/20/2024 9:30 AM EDT Kendell CHIRINOS LAB BLOOD ORDERABLES Fi nal Result [facility] [address] [place] [address], * External clinical lab (09/29/2024) Only the most recent of2 resultswithin the time period is included. Provider [facility] LAB BLOOD ORDERABLES Fin al Result * SCREENING MAMMOGRAPHY BI 2-VIEW BREAST INC CAD (03/04/2024 7:43 AM EDT) Anatomical Region Laterality Modality Radiographic Sheri ging 02/24/2023 7:42 AM EDT Narrative 03/04/2024 12:47 PM EDT This is a summary report. The complete report is available in the patient's medical record. If you cannot access the medical record, please contact the sending organization for a detailed fax or copy. Study: SCREENING MAMMOGRAPHY BI 2-VIEW BREAST INC CAD Technique: Bilateral full-field digital screening mammography is obtained and read in conjunction with computer aided detection. Tomosynthesis as well as 2D C-View imaging were obtained. Comparison: Comparison made to multiple priors, most recent February 24, 2023, and most remote July 04, 2014. Breast composition: The breasts are heterogeneously dense, which may obscure small masses. Bilateral breasts: No significant masses, suspicious calcifications or other abnormalities are seen in either breast. IMPRESSION: Impression: Bilateral breasts: Negative, no specific mammographic evidence of malignancy. Normal interval follow-up is recommended in 12 months. BI-RADS: Category 1: Negative [address] [address] [phone] Procedure Note Terrell Montemayor MD - 03/06/2024 This is a summary report. The complete report is available in thepatient's medical record. If you cannot access the medical record, pleasecontact the sending organization for a detailed fax or copy. Study: SCREENING MAMMOGRAPHY BI 2-VIEW BREAST INC CAD Technique: Bilateral full-field digital screening mammography is obtainedand read in conjunction with computer aided detection. Tomosynthesis aswell as 2D C-View imaging were obtained. Comparison: Comparison made to multiple priors, most recent February, and most remote July 04, 2014. Breast composition: The breasts are heterogeneously dense, which mayobscure small masses. Bilateral breasts: No significant masses, suspicious calcifications orother abnormalities are seen in either breast. IMPRESSION: Impression: Bilateral breasts: Negative, no specific mammographic evidence ofmalignancy. Normal interval follow-up is recommended in 12 months. BI-RADS: Category 1: Negative [address] [address] [phone] Jaspal Ramos MD IMG XR PROCEDURES Final Result * FIT-DNA (Cologuard) (06/18/2023) [facility] Colorectal Cancer Screening: FIT-DNA (Cologuard) negative,a bstracted Historical Provider HEALTH MAINTENANCE Final Result * Hepatitis C Screening (06/14/2020) [facility] Hepatitis C Screening abstracted [facility] Provider HEALTH MAINTENANCE Final Result * DXA BONE DENSITY STUDY 1+ SITS AXIAL SKEL (04/02/2018 9:30 AM EST) Anatomical Region Laterality Modality Bone Densitometr y 02/13/2018 8:22 AM EDT Narrative 04/03/2018 10:03 AM EST DEXA SCAN: Lumbar Spine T-score is 3.4l. (SD relative to 20-29 y/o adult) Z-score is 5.6. (SD relative to age matched peers) This is considered normal by WHO criteria. Left Hip T-score is -0.2. Z-score is 1.3. This is considered normal by WHO criteria. Comparison exam(s): Compared with 03/12/2013 left hip bone mineral density has decreased 3.2% and lumbar spine unchanged.. IMPRESSION: Normal by WHO criteria. [facility] Department of Internal Medicine recommends using National Osteoporosis Foundation (NOF) guidelines in treatment decisions related to osteoporosis. NOF guidelines suggest considering treatment for postmenopausal women and men aged 50 or older presenting with the following: History of hip or vertebral fracture. T-score = -2.5 (DXA) at the femoral neck, total hip, or spine, after appropriate evaluation to exclude secondary causes. Low bone mass (T-score between -1.0 and -2.5 at the femoral neck or spine) AND a 10-year probability of a hip fracture = 3% OR a 10-year probability of a major osteoporosis-related fracture = 20% based on the [place]-adapted WHO algorithm Please note that all treatment decisions require clinical judgment and consideration of individual patient factors, including patient preferences, co-morbidities, previous drug use, risk factors not captured in the FRAX model (e.g., frailty, falls, vitamin D deficiency, increased bone turnover, interval significant decline in bone density) and possible under- or over-estimation of fracture risk by FRAX. Optional alternative screening schedule based on ofe Roman., [facility] May 23, 2011 for patients with osteopenia (based on hip BMD T-score) is as follows: * advanced osteopenia (T scores -2.00 to -2.49), BMD testing every year * moderate osteopenia (T scores -1.50 to -1.99), BMD testing every 5 years mild osteopenia or normal BMD (T scores -1.50 and higher), BMD testing every 15 years Procedure Note Manfred Echols MD - 04/23/2022 DEXA SCAN: Lumbar Spine T-score is 3.4l. (SD relative to 20-29 y/o adult) Z-score is 5.6. (SD relative to age matched peers) This is considered normal by WHO criteria. Left Hip T-score is -0.2. Z-score is 1.3. This is considered normal by WHO criteria. Comparison exam(s): Compared with 03/12/2013 left hip bone mineral densityhas decreased 3.2% and lumbar spine unchanged.. IMPRESSION: Normal by WHO criteria. [facility] Department of Internal Medicine recommendsusing National Osteoporosis Foundation (NOF) guidelines in treatment decisions related toosteoporosis. NOF guidelines suggest considering treatment for postmenopausal women and menaged 50 or older presenting with the following: History of hip or vertebral fracture. T-score = -2.5 (DXA) at the femoral neck, total hip, or spine, afterappropriate evaluation to exclude secondary causes. Low bone mass (T-score between -1.0 and -2.5 at the femoral neck or spine)AND a 10-year probability of a hip fracture = 3% OR a 10-year probability of a majorosteoporosis-related fracture = 20% based on the [place]-adapted WHO algorithm Please note that all treatment decisions require clinical judgment andconsideration of individual patient factors, including patient preferences, co- morbidities,previous drug use, risk factors not captured in the FRAX model (e.g., frailty, falls, vitaminD deficiency, increased bone turnover, interval significant decline in bone density) andpossible under- or over-estimation of fracture risk by FRAX. Optional alternative screening schedule based on brennon Roman al., NEJMJanuary 2011 for patients with osteopenia (based on hip BMD T-score) is as follows: * advanced osteopenia (T scores -2.00 to -2.49), BMD testing every year * moderate osteopenia (T scores -1.50 to -1.99), BMD testing every 5years mild osteopenia or normal BMD (T scores -1.50 and higher), BMD testingevery 15 years Manfred Hargrove MD IMG DXA PROCEDURES Final Res ult from Last 3 Months or Most Recently Relevant to Health Maintenance [facility] Care Teams Tsa Screener Relationship Specialty Start Date End Date Jaspal Ramos MD [address] [place] [id number] PCP - General 03/05/09
== END 2024-12-15 09:35 | disposition home or self-care (01) ==
LOC: HO.HSMS 08:59
PROVIDERS: PCP Internal Medicine; Visit Provider Psychiatry & Neurology Neurology
DX: G25.0 Essential tremor (principal); G25.2 Other specified forms of tremor
CPT/HCPCS: 99204

== ENCOUNTER → 2024-12-15 08:59 | Outpatient (BNVA) | payer OTHER, SELFPAY | PROVIDERS: PCP Internal Medicine; Visit Provider Psychiatry & Neurology Neurology | DX: G25.0 Essential tremor (principal); G25.2 Other specified forms of tremor | CPT/HCPCS: 99202 ==

== ENCOUNTER 2025-04-21 08:18 | Outpatient (AMB) | payer OTHER, SELFPAY ==
--- NOTE | 2025-04-21 08:18 | A.OFFVIS_ITS ---
Vital Signs 04/21/25 08:19 Height 5 ft 4 in Weight 148 lb BMI 25.4 BP 136/78 Blood Pressure Location Rt brachial Position Sitting Pulse 75 Pulse Source Pulse Oximeter Pulse Oximetry (%) 98 Oxygen Delivery Method Room Air Intake Visit Reasons: 4mnth tremors Intake Note: Follow up Essential and other specified forms of tremor, no evidence of PD Custom Shoe Designer And Maker Required: No Accompanied by: Self / Same As Patient Allergies No Known Allergies Allergy (Verified 04/21/25 08:18) Medication List - Last Reconciled 04/21/25 by Ani Wadsworth MD acetaminophen ER 650 mg PO Q12H adalimumab (Humira) inject one - 40 mg/0.8 mL syringe every 2 weeks subcut camphor-methyl salicyl-menthol 3.1-15-10 % (Salonpas Deep Relieving) ea topical diclofenac sodium 1% 2 grams topical QID methimazole 5 mg PO DAILY multivitamin,tx-minerals 1 tab PO DAILY propranolol 10 mg PO BID simvastatin 10 mg PO BEDTIME vit C,E,Zn,So-jydlm6-gkr-zeax 250-2.5-0.5 mg caps PO HPI Comments Details: 79y/o Right handed female comes for follow up of tremors.Her machine maintenance repairer suggested increase in propranalol . She reports hand tremors for over 10 years but worse in the past 5 years. The tremors are roger hands with posture action and rest. she drops things from her hands , has trouble with writing and other daily activities. But she manages to function. she has rheumatoid arthritis. No change in voice . No head injury . No exposure of reglan or any antipsychotics. Gait- slow and had back [facility] Medical History Essential and other specified forms of tremor Hyperthyroidism Bone spur Hernia Rheumatoid arthritis Surgical History S/P arthroscopy of left shoulder S/P tonsillectomy Hx of fusion of cervical spine H/O: hysterectomy Social History Patient Tobacco Use Status: Former Tobacco user Physical Exam Vital Signs: Last Vital Signs Pulse 75 04/21/25 08:19 BP 136/78 04/21/25 08:19 Pulse Ox 98 04/21/25 08:19 Oxygen Delivery Method Room Air 04/21/25 08:19 BMI result Body Mass Index 25.4 Const General: cooperative and comfortable Nutritional Appearance: average body habitus Orientation/consciousness: patient oriented x3 Neuro Other: No ROM neck mild lower lip and chin tremors Rest tremors right UE Roger action and postural R>L tremors No cog wheel rigidity FFM and foot taps - good General: patient oriented x3, tone normal, moves all extremities and no focal motor deficits Cranial nerves: Yes Bilaterally intact EOM present, Yes Nystagmus not present, Yes Normal facial strength present and Yes Midline tongue present Cognition (Neuro): normal cognition Gait exam (Neuro): Antalgic gait present Motor exam (neuro): 5/5 motor strength present throughout and Normal motor muscle tone present throughout Coordination: [id number] test normal Assessment & Plan Assessment & Plan (1) Essential and other specified forms of tremor: Comment: no evidence of parkinsons Code(s): G25.0 - Essential tremor; G25.2 - Other specified forms of tremor Category: Medical Plan Increase propranolol 20 mg bid . side effects discussed will consider occupational therapy Medications: Changed From propranolol 10 mg PO BID 60 tabs 3RF To propranolol 20 mg PO BID 60 tabs 3RF Coding Level of Care Code Est Pt Level 4 (70252) Add On Problem Visit Only Diagnoses Essential and other specified forms of tremor G25.0; G25.2
[2025-04-21 08:19] VITALS: BP 136/78; PULSE 75; O2SAT 98; BMI 25.4
--- OUTSIDE RECORDS SUMMARY | 2025-04-21 08:32 | XMS_ITS | Patient Health Record ---
Author Organization [facility] Address [address] [place] [address] Care Team Providers Care Splitter Tender Name Role Phone FLOWER WORKMAN MD Primary Care Provider BUSTER Voss Unavailable [phone] Allergies No Known Allergies Reason For Referral No Information Medications Medication SIG (Take, Route, Frequency, Duration) Notes Start Date End Date Status levoFLOXacin 750 MG Tablet 1 tablet Oral ly Once a day; Duration: 5 days 06/13/2022 Active Loratadine 10 MG Tablet 1 tab(s) orally once a day Active Magnesium 250 MG Tablet 1 tablet with a meal Orally Once a day; Duration: 30 day(s) Active Zinc 100 MG Tablet 1 tablet Orally Once a day; Duration: 30 day(s) Active methIMAzole 5 MG Tablet 0.5 tab orally d aily; Duration: 90 days Active Humira Pen 40 MG/0.4ML Pen-injector Kit as directed Subcutaneous every other week; Duration: 30 day(s) 08/08/2021 Active Vitamin D3 25 MCG (1000 UT) Capsule 1 capsule Orally Once a day Active Cetirizine HCl 10 MG Tablet 1 tablet Orally Once a day; Duration: 30 day(s) Active Omeprazole 20 MG Capsule Delayed Release 1 capsule 30 minutes before morning meal Orally Once a day; Duration: 30 day(s) Active Fluticasone Propionate 50 MCG/ACT Suspension 1 spray in each nostril Nasally Once a day; Duration: 30 day(s) Active Simvastatin 10 MG Tablet 1 tab(s) orally once a day (at bedtime) Active Metamucil Smooth Texture 58.6 % Powder 4 T orally once a day Activ e Tylenol 8 Hour Arthritis Pain 650 MG Tablet Extended Release 2 tablets as needed Orally Active Diclofenac Sodium 1 % Gel 1.5 grams topi regina to affected joints BID prn Active Immunizations Vaccine Route Administration Date Status Comme nts FLU- FLUVIRIN, PRE-FILLED SYRINGE 0.5 ml IM Intramuscular 01/29/2013 Administered H1N1 inactivated injectable IM Intramuscular 06/02/2009 Administered Influenza IM Intramuscular 02/05/2010 Administered Influenza IM Intramuscular 02/04/2011 Administered Influenza IM Intramuscular 01/24/2012 Administered Influenza, Fluzone HD 65+ IM Intramuscular 02/01/2019 Admi nistered PPD read Unknown 03/22/2015 Administered PPD, TB Intradermal Test ID Intradermal 03/20/2015 Adminis tered Social History Tobacco Use: Social History Observation Description Date Details (start date - stop date) Former Smoker NA - NA Social History Tobacco Use: Social Info Question Answer Notes Smoking Are you a: former smoker Additional Details Category Social Info Options Details General 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, 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 exposure: no Past year's travels: [place] , no ne 2020, alcohol use: 2-3 times a year drug use: no Hobbies/Exercise habits: gardeni ng, making jewelry Coffee/Tea/Soda: yes Coffee 4 cups Marital Status 10/2017 experience no Living with alone smokers in household no former smok er ; quit - 1979 Section Notes: no children by choice no children by choice no children by choice no children by choice no children by choice no children by choice no children by choice no children by choice no children by choice no children by choice no children by choice no children by choice no children by choice no children by choice no children by choice no children by choice no children by choice no children by choice no children by choice no children by choice no children by choice no children by choice no children by choice no children by choice no children by choice no children by choice no children by choice no children by choice no children by choice no children by choice no children by choice no children by choice no children by choice no children by choice no children by choice no children by choice no children by choice no children by choice no children by choice no children by choice no children by choice no children by choice no children by choice no children by choice no children by choice no children by choice no children by choice no children by choice no children by choice no children by choice no children by choice no children by choice Problems Problem Type SNOMED Code ICD Code Onset Dates Problem Status W/U Status Risk Notes Problem Non-toxic multinodular goiter (43898792) Multinodular goiter, nontoxic (241.1) Active confirmed Problem Toxic multinodular goiter with no crisis (728985551) Multinodular goiter, toxic, without mention of crisis or storm (242.20) Active confirmed Problem Dysphagia (01870482) Dysphagia (438.82) Active confirmed Problem Localized, primary osteoarthritis (163962242) Primary localized osteoarthrosis of lower leg (715.16) Active confirmed Problem Shoulder joint pain (138998127) Joint pain, shoulder (719.41) Active confirmed Problem Hand joint pain (660067208) Joint pain, hand (719.44) Active confirmed Problem Joint pain, lowe r leg or knee (719.46) Active confirmed Problem Disorder of tendon of shoulder region (62428088) Disorder of tendon of shoulder region NOS (726.10) Active confirmed Problem Disorder of bursae of shoulder region (40758902) Disorders of bursae and tendons in shoulder region, unspecified (726.10) Active confirmed Problem Thyroid function tests abnormal (042256156) Abnormal thyroid function study (794.5) Active confirmed Problem Olecranon bursitis (863661495) Olecranon bursitis (726.33) Active confirmed Problem Dizziness (922211053) Dizziness (780.4) Active confirmed Problem Arthralgia (62119369) Arthralgia (719.40) Active confirmed Problem Arthralgia of the pelvic region and thigh (720778631) Joint pain, hip or thigh (719.45) Active confirmed Problem Vitamin D deficiency (13314138) Vitamin D deficiency (E55.9) Active confirmed Problem Medication monitoring (653110330) Medication monitoring encounter (Z51.81) Active confirmed Problem Toxic multinodular goiter (72635991) Toxic multinodular goiter (E05.20) Active confirmed Problem Generalized osteoarthritis (472461139) Generalized osteoarthritis (M15.9) Active confirmed Problem Sjogrens syndrome (17312220) Sjogrens syndrome (710.2) Active confirmed Problem Long-term current use of drug therapy (186173914) Encounter for long-term (current) use of other medications (Z79.899) Active confirmed Problem Sjogrens syndrome (36426405) Sjogrens syndrome (M35.00) Active confirmed Problem Rheumatoid arthritis (75483355) Rheumatoid arthritis involving multiple sites with positive rheumatoid factor (M05.79) Active confirmed Problem Subacute cough (9900269587911815 03) Subacute cough (R05.2) Active confirmed Problem Primary osteoarthritis (349238488) Primary osteoarthritis involving multiple joints (M15.9) Active confirmed Plan Of Treatment Pending Test Test Name Order Date SGOT 04/24/2023 SGPT 04/24/2023 TSH 04/24/2023 FREE T3 04/24/2023 FREE T4 04/24/2023 Free T3 07/11/2014 AST ( SGOT) 08/08/2021 ALT(DO NOT USE) 08/08/2021 AST ( SGOT) 12/10/2021 ALT(DO NOT USE) 12/10/2021 Future Test Test Name Order Date FREE T4 01/23/2015 TSH 01/23/2015 Free T3 01/23/2015 FREE T4 07/18/2015 TSH 07/18/2015 Free T3 07/18/2015 FREE T4 10/29/2015 TSH 10/29/2015 Free T3 10/29/2015 FREE T4 06/29/2018 TSH 06/29/2018 Free T3 06/29/2018 FREE T4 01/11/2019 TSH 01/11/2019 Free T3 01/11/2019 FREE T4 08/02/2019 TSH 08/02/2019 Free T3 08/02/2019 FREE T4 01/25/2020 TSH 01/25/2020 AST ( SGOT) 01/25/2020 ALT(DO NOT USE) 01/25/2020 Free T3 01/25/2020 FREE T4 07/31/2020 TSH 07/31/2020 Free T3 07/31/2020 FREE T4 02/13/2021 TSH 02/13/2021 Free T3 02/13/2021 FREE T4 09/03/2021 TSH 09/03/2021 AST ( SGOT) 09/03/2021 ALT(DO NOT USE) 09/03/2021 Free T3 09/03/2021 FREE T4 03/21/2022 TSH 03/21/2022 Free T3 03/21/2022 ESR 06/13/2022 ALBUMIN 06/13/2022 AST ( SGOT) 06/13/2022 CREATININE 06/13/2022 CRP 06/13/2022 CBC W/ AUTOMATED DIFF 06/13/2022 ELECTROLYTES 06/13/2022 25 [place] Vitamin D 06/13/2022 ALT (SGPT) 06/13/2022 Insurance Providers Payer Name Payer Address Payer Phone Subscriber Number Group Number Insured Name Patient Relationship to Insured Coverage Start Date Coverage End Date [facility] [address] [place] [id number] [phone] [id number] ANTONINO CARRASCO Self - patient is the insured 0 Medications Administered Medication Instructions Date of Administration Dosage Notes Triamcinolone Acetonide, mul ti-dose vial, 09/21/2014 60 mg Medical (General) History Medical History History ICD Code rheumatoid arthritis, Dx 1980s osteoarthritis hands, feet, knees, spine Sjogren's syndrome biopsy [address] Nguyen 2014 asthma allergies diverticulosis GI Bleed upper with ibuprofen h-pylori pneumovax 2004, 2013 hypercholesterolemia abnormal pap 01/09 Intentional tremor Gastroesophageal reflux disease (GERD) Multinodular toxic goiter, l ow TSH 0.09-0.17, nl FT4/FT3-hyperfunctioning R, 1.9 cm and L 3 cm lobe nodule-latter benign on FNA in 11/12. On MMI since 07/14. Surgery declined by pt. ? Ariane's thyroiditis-mi ld TPO elevation in 10/2009. repeat TPO in 06/16 nl. TSH R AB nl both times. Dysphagia cataracts does BMD with PCP normal per pt in 2009 or 2010, 2012 fungus on mouth and skin - Derm at [facility]. Dr Krista RABAGOT PPD NEG Surgical History Surgery Date(Month/Year) bone spur left shoulder 2009 hernia repair 2001 10 nerve block injections done at [facility] nd 06/[address] Lynn 11/11 cyst removal - face 01/09 tonsillectomy 11/08 cyst removed between the breasts and one left lower back 04/2013 cataract-lens implants OU 2010 Lip biopsy - Dr Obregon 05/2010 cervical fusion C5-C6 1994 hysterectomy, total with BSO 1991 hernia repair - abdominal Hospitalization History Reason Date(Month/Year) [facility] ER - SVT (held over night) 03/11/15
--- OUTSIDE RECORDS SUMMARY | 2025-04-21 08:32 | XMS_ITS | Encounter Summary ---
Author Organization [facility] Address [address] [place] [address] Care Team Providers Care Steeping Press Operator Name Role Phone Jaspal Ramos MD Primary Care Provider [phone] Encounter Details Date Type Department Care Team (Late Contact Info) Description 07/01/2024 Telephone Adult Medicine [address] [phone] Roxi Hair RN Social History Tobacco Use Types Packs/Day Years Used Date Smoking Tobacco: Former Cigarettes 0 Q uit: 05/05/1978 Smokeless Tobacco: Never Alcohol Use Standard Drinks/Week Comments Yes 0 (1 standard drink = 0.6 oz pur e alcohol) Comments Unknown Sex and Gender Information Value Date Recorded Sex Assigned at Not on file Legal Sex Female 6:08 PM EST Gender Identity Not on file Sexual Orientation Not on file documented as of this encounter Plan of Treatment Upcoming Encounters Date Type Department Care Team (Late Contact Info) Description 05/03/2025 9:00 AM EST Ancillary Procedure [facility] [address] [facility] [place] [address] [place] [phone] 05/31/2025 9:30 AM EST Office Visit Adult Medicine [address] [phone] Kendell Carrington PA [address] [place] [address] documented as of this encounter Visit Diagnoses Diagnosis Exudative age-related macular degeneration of right eye, unspecified stage (CMS/HCC V24, CMS/HCC V28)- Primary documented in this encounter Care Teams Steeping Press Operator Relationship Specialty Start Date End Date Jaspal Ramos MD [address] [place] [phone] PCP - General 03/05/09 documented as of this encounter
--- OUTSIDE RECORDS SUMMARY | 2025-04-21 08:32 | XMS_ITS | Encounter Summary ---
Author Organization [facility] Address [address] [place] [address] Care Team Providers Care Resistance Welding Machine Operator Name Role Phone Jaspal Ramos MD Primary Care Provider [phone] Encounter Details Date Type Department Care Team ([facility] st Contact Info) Description 03/26/2025 Results Follow-Up Adult Medicine [address] [phone] Kendell Carrington PA [address] [place] [address] Social History Tobacco Use Types Packs/Day Years [...] for your loved ones. For example, children's minister or elderly care for an older adult? [...] Date Recorded What is your living situation? Unrecognized valu e 10/20/2024 Comments Unknown Sex and Gender Information Value Date Recorded Sex Assigned at Not on file Legal Sex Female 6:08 PM EST Gender Identity Not on file Sexual Orientation Not on file documented as of this encounter Plan of Treatment Upcoming Encounters Date Type Department Care Team (Late st Contact Info) Description 05/03/2025 9:00 AM EST Ancillary Procedure [facility] [address] [facility] [address] [place] [address] 05/31/2025 9:30 AM EST Office Visit Adult Medicine [address] [place] [phone] Kendell Carrington PA [address] [place] [address] documented as of this encounter Visit Diagnoses Not on filedocumented in this encounter Additional Health Concerns Assessment Noted Time PHQ-9 Depression Total Score: 0 10/21/19 25 9:16 AM EDT documented as of this encounter Care Teams Resistance Welding Machine Operator Relationship Specialty Start Date End Date Jaspal Ramos MD [address] [place] [address] PCP - General 03/05/09 documented as of this encounter
--- OUTSIDE RECORDS SUMMARY | 2025-04-21 08:32 | XMS_ITS | Patient Health Record ---
Author Organization [facility] Tanesha hal [place] Address [address] [place] [address] Care Team Providers Care Pearl Technician Name Role Phone Richard TUCKER, Dl Primary Care Provider UnavailElvira Coombs Unavailable [phone] Allergies No Known Allergies Reason For Referral [...] Dl Referring Provider Last Name Richard [facility] Elvira Bangura Referred Address [address] [facility],[place], [place],[address], Referred Provider Specialty Podiatry Referral Priority Routine Medications Medication SIG (Take, Route, Frequency, Duration) Notes Start Date End Date Status Ammonium Lactate 12 % 1 application Exte rnally to affected areas of dry skin to feet except for between the toes Twice a day; Duration: 30 days Active PreserVision AREDS 2 Active Diclofenac Sodium 1 % 1 application Exte rnally Twice a day; Duration: 90 days Not-Taking Diclofenac Sodium 1 % 1 application Exte rnally 2-4 grams BID not to exceed 8 grams; Duration: 90 days Active Lidocaine 5 % 1 application as nee ded Externally Three times a day 02/23/2024 Active Omeprazole 20 MG 1 capsule 30 minutes before morning meal Orally Once a day; Duration: 30 day(s) Not-Taking Simvastatin 10 MG 1 tablet in the even ing Orally Once a day; Duration: 30 day(s) Active Shaneka Allergy 180 MG 1 tablet Orally O nce a day; Duration: 30 day(s) Not-Oskar ing Tylenol 8 Hour 650 MG 4 tablets as neede d Orally every 8 hrs Active methIMAzole 5 MG 1/2 tablet Orally On ce a day Active Humira Pen 40 MG/0.8ML as directed Subcutaneous Active Diclofenac Sodium 1 % as directed Transd ermal Twice a day; Duration: 30 days Active Immunizations Vaccine Route Administration Date Status Comme nts Influenza Unknown 02/02/2025 Administered COVID-19 Moderna Vaccine Unknown 12/16/2020 Administered 1st [...] Problem Acquired hammer toe of right foot (3776119509660573) Other hammer toe(s) (acquired), right foot (M20.41) Active confirmed Problem Acquired hammer toe of left foot (1543829738830637) Other hammer toe(s) (acquired), left foot (M20.42) Active confirmed Problem Rheumatoid arthritis (52238136) Rheumatoid arthritis with rheumatoid factor of right ankle and foot without organ or systems involvement (M05.771) Active confirmed Problem Tinea unguium (932719734) Tinea unguium (B35.1) Active confirmed Problem Localized, primary osteoarthritis of the ankle and/or foot (474825654) Arthritis of joint of lesser toe, left (M19.072) Active confirmed Problem Localized, primary osteoarthritis of the ankle and/or foot (769285334) Arthritis of joint of lesser toe, right (M19.071) Active confirmed Vital Signs Blood pressure diastolic 65 mm Hg 02/10/2025 Height 5ft 4in in 02/10/2025 Blood pressure systolic 112 mm Hg 02/10/2025 Weight 150 lbs 02/10/2025 BMI 25.74 kg/m2 02/10/2025 Procedures Procedure Date Ordered Date Performed Result Body Sit e 14388-IGLSDHP NAIL, 1-5 05/31/2024 N/A 99639-UTRAGVI NAIL, 1-5 08/30/2024 N/A 40817-Muwyfxbw Plate 08/30/2024 N/A 61770-XAMLJCV NAIL, 6 OR MORE 12/09/2024 N/A 35168-MILXAOP NAIL, 6 OR MORE 02/10/2025 N/A Encounters Encounter Location Date Provider Diagnosis [address] [address] 05/31/2024 Elvira Black Right foot pain M79. 671 ; Osteoarthritis of right ankle and foot M19.071 ; Tinea unguium B35.1 ; Pain in right toe(s) M79.674 ; Pain in left toe(s) M79.675 ; Exostosis M89.8X9 and Xerosis of skin L85.[address] [address] 08/30/2024 Elvira Black Tinea unguium B35.1 ; Ingrown nail L60.0 ; Pain in right toe(s) M79.674 ; Pain in left toe(s) M79.675 and Xerosis of skin L85.[address] [address] 12/09/2024 Elvira Black Tinea unguium B35.1 ; [...] foot without organ or systems involvement M05.771 [facility] [address] [address] 02/10/2025 Elvira Black Tinea unguium B35.1 ; Achilles [...] Treatment Notes Treatment Clinical Notes Section Notes 05/31/2024 Right foot pain (ICD -10 - [...] Patient Educated with: RICE THERAPY.pdf (RICE THERAPY.pdf) 02/10/2025 Tinea unguium (ICD-1 0 - B35.1) 02/10/2025 Achilles tendinitis of right lower extremity (ICD-10 - M76.61) 02/10/2025 Pain in right toe(s) (ICD-10 - M79.674) 12/09/2024 Pain in right toe(s) (ICD-10 - M79.674) 08/30/2024 Pain in right toe(s) (ICD-10 - M79.674) 05/31/2024 Tinea unguium (ICD-1 0 - B35.1) 05/31/2024 Pain in right toe(s) (ICD-10 - M79.674) 08/30/2024 Pain in left toe(s) (ICD-10 - M79.675) 12/09/2024 Pain in left toe(s) (ICD-10 - M79.675) 02/10/2025 Pain in left toe(s) (ICD-10 - M79.675) 02/10/2025 Pain of right heel (ICD-10 - M79.671) 12/09/2024 Pain of right heel (ICD-10 - M79.671) 08/30/2024 Xerosis of skin (ICD -10 - L85.3) 05/31/2024 Pain in left toe(s) (ICD-10 - M79.675) 05/31/2024 Exostosis (ICD-10 - M89.8X9) 12/09/2024 Short Achilles tendo n (acquired), right ankle (ICD-10 - M67.01) 02/10/2025 Short Achilles tendo n (acquired), right ankle (ICD-10 - M67.01) 02/10/2025 Achilles tendinitis of left lower extremity (ICD-10 - M76.62) 12/09/2024 Achilles tendinitis of left lower extremity (ICD-10 - M76.62) Patient Educated with: HEEL CORD STRETCHES.pdf (HEEL CORD STRETCHES.pdf ) Patient Educated with: RICE THERAPY.pdf (RICE THERAPY.pdf) 05/31/2024 Xerosis of skin (ICD -10 - L85.3) 12/09/2024 Pain of left heel (ICD-10 - M79.672) 02/10/2025 Pain of left heel (ICD-10 - M79.672) 02/10/2025 Short Achilles tendo n (acquired), left ankle (ICD-10 - M67.02) 12/09/2024 Short Achilles tendo n (acquired), left ankle (ICD-10 - M67.02) 12/09/2024 Other hammer toe(s) (acquired), right foot (ICD-10 - M20.41) 02/10/2025 Other hammer toe(s) (acquired), right foot (ICD-10 - M20.41) 12/09/2024 Arthritis of joint o f lesser toe, right (ICD-10 - M19.071) 02/10/2025 Arthritis of joint o f lesser toe, right (ICD-10 - M19.071) 12/09/2024 Other hammer toe(s) (acquired), left foot (ICD-10 - M20.42) 02/10/2025 Other hammer toe(s) (acquired), left foot (ICD-10 - M20.42) 12/09/2024 Arthritis of joint o f lesser toe, left (ICD-10 - M19.072) 02/10/2025 Arthritis of joint o f lesser toe, left (ICD-10 - M19.072) 02/10/2025 Subluxation of metatarsophalangeal joint of toe, initial encounter (ICD-10 - S93.149A) 12/09/2024 Subluxation of metatarsophalangeal joint of toe, initial encounter (ICD-10 - S93.149A) 12/09/2024 Rheumatoid arthritis with rheumatoid factor of right ankle and foot without organ or systems involvement (ICD-10 - M05.771) 02/10/2025 Rheumatoid arthritis with rheumatoid factor of right ankle and foot without organ or systems involvement (ICD-10 - M05.771) Plan Of Treatment Pending Test Test Name Order Date 02113-DTBFPYP NAIL, 6 OR MORE 05/18/2020 77174-GNFQPJT NAIL, 6 OR MORE 08/17/2020 92959-IQWPYZC NAIL, 6 OR MORE 11/16/2020 55138-URYDBZI NAIL, 6 OR MORE 02/22/2021 97533-NIFGJQX NAIL, 6 OR MORE 06/04/2021 87618-IHJLQJU NAIL, 6 OR MORE 09/06/2021 94712-NNVTIBQ NAIL, 6 OR MORE 12/20/2021 46114-NODALIG NAIL, 6 OR MORE 03/25/2022 09065-YTKOWSW NAIL, 6 OR MORE 07/01/2022 57429-IZYGWAH NAIL, 6 OR MORE 10/10/2022 06218-ERZOCDB NAIL, 6 OR MORE 01/20/2023 05228-XEANWSF NAIL, 6 OR MORE 12/09/2024 75676-GTXSZNM NAIL, 6 OR MORE 02/10/2025 77639-LOPZXNQ NAIL, 1-5 08/30/2024 82524-HHDZUOS NAIL, 1-5 08/07/2023 07303-YXBUAFT NAIL, 1-5 11/13/2023 40646-CAWOCDX NAIL, 1-5 02/23/2024 92494-BMPLGTI NAIL, 1-5 05/31/2024 85430-Fvussqqt Plate 08/30/2024 82249-Dhlybkpn Plate 01/20/2023 13634-Xlmrvhev Plate Each Additional 65804- Debride <25 sq cm 03/25/2022 11620, S0142-YLIWS/INJECT, JOINT/BURSA 0 10/10/2022 Next Appt Details Provider Name:Elvira Rosalind Bangura , 06/06/2025 08:30:00 AM, [address] [facility], [place], [address], Insurance Providers Payer Name Payer Address Payer Phone Subscriber Number Group Number Insured Name Patient Relationship to Insured Coverage Start Date Coverage End Date [facility] [address] [place] [phone] [id number] Goddu, Olga Self - patient is the insured Medical [...] History Surgery Date(Month/Year) hysterectomy 1992 neck fusion 1995 hernia 2002 tonsillectomy 2006 Bone Spurs 2010
--- OUTSIDE RECORDS SUMMARY | 2025-04-21 08:32 | XMS_ITS | Clinical Summary ---
Author Organization [facility] [address] [place] [address] [place] [phone] Phone Care Team Providers Care Private Watchman Name Role Phone Jaspal Ramos MD Primary Care Provider [phone] Allergies No known active allergies Medications adalimumab [...] 16 g 2 5 10/21/19 26 Active simvastatin (ZOCOR) 10 mg tablet Take 1 tablet (10 mg total) by mouth at bedtime. at bedtime. 90 tablet 1 5 Active Hospital, Clinic, or Other Facility Administered Medication Ordered Dose Route Frequency Start Date End Date Status propranoloL (INDERAL) tablet 20 mgIndications:SVT (supraventricular tachycardia) ([facility] V24) 20 mg oral 2 times daily 02/03/2025 Active Active Problems Problem Noted Date Diagnosed Date Other rheumatoid arthritis w ith rheumatoid factor of right ankle and foot 02/04/2024 Hyperlipidemia 07/11/2023 Assessment & Plan (02/03/2025 11:00 AM EDT): Her LDL is very good but triglyceride is quite elevated. We discussed about lifestyle change including reducing carbohydrate intake ie reducing ice cream. 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 Onset . Hydroxychloroquine and methotrexate not that helpful. Good response to Humira ~ 2010, Humira held in 2013 because of infection. Synovitis remained reasonably well controlled after that until late 2014 MCP and MTP erosive disease Humira restarted 06/2015 Follows [facility] now Asthma 07/11/2023 Rheumatoid arthritis involvi ng multiple sites with positive rheumatoid factor 02/04/2023 Overview (07/11/2023): Last Assessment & Plan: [...] Overview (07/11/2023): Negative cysto 2015 PSVT (paroxysmal supraventricular tachycardia) 1 05/21/2014 Assessment & Plan (02/03/2025 11:00 AM EDT): With infrequent episodes. She was started on low-dose propranolol and heart rate and blood pressure were both in the high range. I will increase propranolol to 20 mg twice a day and continue to monitor symptoms. Will schedule echocardiogram. Hyperthyroidism 03/21/2015 Thyroid nodule 03/21/2015 Overview (07/11/2023): Follows with [facility] 6mth basis Seborrheic dermatitis 04/11/2014 Overview (07/11/2023): Seborrheic dermatitis Sjogren's disease 02/25/2013 Diverticulitis of colon 11/06/2009 Overview (02/04/2024): (without mention of hemorrhage) History of diverticulitis approximately 1999. Resolved Problems Problem Noted Date Diagnosed Date Resolved Date SVT (supraventricular tachycardia) 03/13/2015 02/03/2025 Assessment & Plan (02/03/2025 11:00 AM EDT): Orders: ECG 12 lead Transthoracic echocardiogram (TTE) complete with PRN contrast, bubble, strain, and 3D order panel; Future propranoloL (INDERAL) tablet 20 mg Encounters Date Type Department Care Team Description 03/26/2025 Results Follow-Up Adult [address] [phone] Kendell Carrington PA 03/23/2025 8:55 AM EST - 03/23/2025 11:59 PM EST Hospital Encounter Bone Density - [address] [phone] Postmenopausal Discharge Disposition: Home or Self Care 02/03/2025 10:20 AM EDT Office Visit [facility] [address] [place] [address] Bonny Ponce MD SVT (supraventricular tachycardia) (CMS/HCC V24) (Primary Dx); PSVT (paroxysmal supraventricular tachycardia) (CMS/HCC V24); Hyperlipidemia, unspecified hyperlipidemia type 02/02/2025 Telephone Adult [facility] [address] [address] Jaspal Ramos MD from Last 3 Months Immunizations Immunization Administration Dates Next Due Influenza Quadravalent, MDCK [...] subun it RSVpreF, 0.5mL, Preservative Free (Arexvy) 50yo and older 02/27/2023 Tdap Tetanus diptheria acell ular pertussis (Boostrix; Adacel) 7yo and older 03/21/2024,03/13/2012 Zoster Live 08/24/2014 Zoster recombinant (Shingrix ) 19yo and older 10/07/2022,08/06/2022,11/16/2018,08/21 Surgical History Surgery Date Site/Laterality Comments NECK SURGERY PROCEDURE: HISTORICAL NECK SURGERY; COMMENT: fusion HERNIA REPAIR PROCEDURE: HISTORICAL HERNIA REPAIR/MARISSA; COMMENT: 2nd to abd surgery TONSILLECTOMY PROCEDURE: HISTORICAL TONSILLECTOMY; COMMENT: 2006 COLONOSCOPY 11/06/2009 PROCEDURE: ID COLONOSCOPY FLX DX W/COLLJ SPEC WHEN PFRMD; [...] care for your loved ones. For example, child care centre director or elderly care for an older adult? [...] on file Sexual Orientation Not on file Last Filed Vital Signs Vital Sign Reading Time Taken Comments Blood Pressure 140/80 02/03/2025 9:58 AM EDT Pulse 72 02/03/2025 9:58 AM EDT Temperature 36 C (96.8 F) 10/20/2024 8:40 AM EDT Respiratory Rate 16 10/20/2024 8:40 AM EDT Oxygen Saturation 99% 02/03/2025 9:58 AM EDT Inhaled Oxygen Concentration - - Weight 73 kg (161 lb) 10/20/2024 8:40 AM EDT Height 162.6 cm (5' 4 ) 02/03/2025 9:58 AM EDT Body Mass Index 27.64 10/20/2024 8:40 AM EDT Plan of Treatment Upcoming Encounters Date Type Department Care Team (Late st Contact Info) Description 05/03/2025 9:00 AM EST Ancillary Procedure [facility] [address] [place] [address] [facility] [place] [place] [address] 05/31/2025 9:30 AM EST Office Visit Adult Medicine [address] [phone] Kendell Carrington PA [address] [place], [place] Health Maintenance Due Date Last Done Comments Falls Risk Assessment 05/13/2023 05/13/2022 Medicare Annual Wellness Visit 05/13/2023 05/13/2022 Colorectal Cancer Screening: Stool Based Tests (FOBT/FIT) 07/11/2023 04/30/2021 COVID-19 Vaccine ( season) 2025 01/17/2025, 02/05/2024, 01/20/2023, Additional history exists Social Influencers of Health Screening 10/20/2025 10/20/2024 Cholesterol Screening (Lipid Panel) 10/20/2029 10/20/2024, 11/20/2022, 11/20/2022 DTaP,Tdap,and Td Vaccines (3 - Td or Tdap) 03/21/2034 03/21/2024, 03/13/2012 Osteoporosis Screening (Bone Density Screening) 03/23/2040 03/23/2025, 04/02/2018 Pneumococcal Vaccine: 50+ Years Completed 01/03/2016, 11/03/2013 Zoster Vaccines Completed 10/07/2022, 04/0 08/2022, 11/16/2018, Additional history exists Hepatitis C Screening Completed 12/16/2022 , 06/14/2020, 06/14/2020 RSV Immunization Adult Patients Completed 02/27/2023 Colorectal Cancer Screening: FIT-DNA (Cologuard) Discontinued 06/18/2023, 06/18/2023, 06/18/2023 Breast Cancer Screening Discontinued 03/04/20 24, 03/04/2024, 03/13/2023, Additional history exists Depression Screening Completed 10/20/2024 Influenza Vaccine Completed 02/02/2025, , 02/05/2024, Additional history exists HIB Vaccines Aged Out No longer eligi [...] Procedure Name Priority Date/Time Associated Diagnosis Comments BD BONE DENSITY DXA AXIAL SKELETON Routine 03/23/2025 9:15 AM EST Postmenopausal ECG 12-LEAD Routine 02/03/2025 10:05 AM EDT SVT (supraventricular tachycardia) (CMS/HCC V24) EXTERNAL NON-DIABETIC EYE EXAM Routine 02/02/2025 8:02 AM EDT LIPID PANEL WITH REFLEX TO DIRECT LDL Routine 10/20/2024 9:30 AM EDT Routine history and physical examination of adult SCREENING MAMMOGRAPHY BI 2-VIEW BREAST INC CAD Routine 03/04/2024 7:43 AM EDT Encounter for screening mammogram for malignant neoplasm of breast FIT-DNA Routine 06/18/2023 HEPATITIS C SCREENING Routine 06/14/2020 from Last 3 Months or Most Recently Relevant to Health Maintenance Results * BD Bone Density DXA Axial Skeleton (03/23/2025 9:15 AM EST) Anatomical Region Laterality Modality Wrist, Hip, L-spine Bone Densito metry 03/23/2025 11:3 9 AM EST Impressions 03/23/2025 11:42 AM EST Normal bone mineral density by WHO criteria. [facility] Department of Internal Medicine recommends using [...] alternative screening schedule based on ofe Roman., [facility] May 23, 2011 for patients with osteopenia (based on hip BMD T-score) is as follows: * advanced osteopenia (T scores -2.00 to -2.49), BMD testing every year * moderate osteopenia (T scores -1.50 to -1.99), BMD testing every 5 years mild osteopenia or normal BMD (T scores -1.50 and higher), BMD testing every 15 years -------- FINAL REPORT -------- Dictated By: Elba Byrne Dictated Date: 03/23/2025 11:39 ET Assigned Physician: Elba Byrne Reviewed and Electronically Signed By: Elba Byrne Signed Date: 03/23/2025 11:42 ET Workstation ID: [id number] Transcribed By: Self Edit Transcribed Date: 03/23/2025 11:39 ET Narrative 03/23/2025 11:42 AM EST BONE DENSITY SCAN (DEXA) FINDINGS: Lumbar Spine T-score is 3.5. (SD relative to 20-29 y/o adult) Z-score is 6.0. (SD relative to age matched peers) This is considered normal by WHO criteria. Left Hip T-score is 1.7. Z-score is 3.9. This is considered normal by WHO criteria. Comparison: 04/02/2018. No statistically significant change in bone mineral density. Procedure Note Elba Byrne MD - 03/23/2025 BONE DENSITY SCAN (DEXA) FINDINGS: Lumbar Spine T-score is 3.5. (SD relative to 20-29 y/o adult) Z-score is 6.0. (SD relative to age matched peers) This is considered normal by WHO criteria. Left Hip T-score is 1.7. Z-score is 3.9. This is considered normal by WHO criteria. Comparison: 04/02/2018. No statistically significant change in bonemineral density. IMPRESSION: Normal bone mineral density by WHO criteria. [facility] Department of Internal Medicine recommendsusing National Osteoporosis Foundation (NOF) guidelines in treatmentdecisions related to osteoporosis. NOF guidelines suggest consideringtreatment for postmenopausal women and men aged 50 or older presentingwith the following: History of hip or vertebral fracture. T-score = -2.5 (DXA) at the femoral neck, total hip, or spine, afterappropriate evaluation to exclude secondary causes. Low bone mass (T-score between -1.0 and -2.5 at the femoral neck or spine)AND a 10-year probability of a hip fracture = 3% OR a 10-year probabilityof a major osteoporosis-related fracture = 20% based on the [place]-adapted WHOalgorithm Please note that all treatment decisions require clinical judgment andconsideration of individual patient factors, including patientpreferences, co-morbidities, previous drug use, risk factors not capturedin the FRAX model (e.g., frailty, falls, vitamin D deficiency, increasedbone turnover, interval significant decline in bone density) and possibleunder- or over-estimation of fracture risk by FRAX. Optional alternative screening schedule based on ofe Roman., NEJMJanuary 2011 for patients with osteopenia (based on hip BMD T-score)is as follows: * advanced osteopenia (T scores -2.00 to -2.49), BMD testing every year * moderate osteopenia (T scores -1.50 to -1.99), BMD testing every 5years mild osteopenia or normal BMD (T scores -1.50 and higher), BMD testingevery 15 years -------- FINAL REPORT -------- Dictated By: Elba Byrne Dictated Date: 03/23/2025 11:39 ET Assigned Physician: Elba Byrne Reviewed and Electronically Signed By: Elba Byrne Signed Date: 03/23/2025 11:42 ET Workstation ID: [id number] Transcribed By: Self Edit Transcribed Date: 03/23/2025 11:39 ET us Kendell CHIRINOS IMG DXA PROCEDURES Leonela l Result * ECG 12 lead (02/03/2025 10:05 AM EDT) Ventricular Rate ECG 72 BPM GEMUSE Atrial Rate 72 BPM GEMUSE P-R Interval 156 ms GEMUSE QRS Duration 78 ms GEMUSE Q-T Interval 420 ms GEMUSE QTc 459 ms GEMUSE P Wave Abell 84 degrees GEMUSE R Abell 81 degrees GEMUSE T Abell 75 degrees GEMUSE ECG Interpretation Normal sinus rhythm Borderline QT interval When compared with ECG of 17-NOV-2009 13:46, No significant change was found Confirmed by Cathie PONCE YUFENG ([id number]) on 02/03/2025 10:10:03 AM GEMUSE 02/03/2025 10:0 5 AM EDT 02/03/2025 10:10 AM EDT us Bonny Ponce MD ECG ORDERABLES Final Result GEMUSE * External Non-Diabetic Eye Exam Report (02/02/2025 8:02 AM EDT) Anatomical Region Laterality Modality Ultrasound us Historical Provider IMG US PROCEDURES Final R esult * (ABNORMAL) Lipid panel with reflex to direct LDL (10/20/2024 9:30 AM EDT) Cholesterol 205(H) 0 - 200 mg/dL LAB CHEMISTRY METHOD 10/20/2024 2:12 PM EDT [facility] Triglycerides 339(H) 0 - 150 mg/dL LAB CHEMISTRY METHOD 10/20/2024 2:12 PM EDT [facility] HDL 42 >=40 mg/dL LAB CHEMISTRY METHOD 10/20/2024 2:12 PM EDT [facility] LDL Calculated 95 0 - 100 mg/dL LAB CHEMISTRY METHOD 10/20/2024 2:12 PM EDT [facility] VLDL Cholesterol Scot 67.8 mg/dL LAB CHEMISTRY METHOD 10/20/2024 2:12 PM EDT [facility] Non HDL Chol. (LDL+VLDL) 163(H) <145 mg/dL LAB CHEMISTRY METHOD 10/20/2024 2:12 PM EDT [facility] Chol/HDL Ratio 4.9(H) 0.0 - 4.4 LAB CHEMISTRY METHOD 10/20/2024 2:12 PM EDT [facility] Blood Venous blood specimen / Unknown Venipuncture / Unknown 10/20/2024 9:30 AM EDT 10/20/2024 9:30 AM EDT Kendell CHIRINOS LAB BLOOD ORDERABLES Fi nal Result [facility] [address] [place] [address], * SCREENING MAMMOGRAPHY BI 2-VIEW BREAST INC [...] in 12 months. BI-RADS: Category 1: Negative [address] [address] [phone] Procedure Note Terrell Montemayor MD - 03/06/2024 [...] in 12 months. BI-RADS: Category 1: Negative [address] [address] [phone] us Jaspal Ramos MD IMG XR PROCEDURES Final Result * FIT-DNA (Cologuard) (06/18/2023) [facility] Colorectal Cancer Screening: FIT-DNA (Cologuard) negative,a bstracted Historical Provider HEALTH MAINTENANCE Final Result * Hepatitis C Screening (06/14/2020) [facility] Hepatitis C Screening abstracted Historical Provider HEALTH MAINTENANCE Final Result from Last 3 Months or Most Recently Relevant to Health Maintenance Insurance MEDICARE [facility] Care Teams Private Watchman Relationship Specialty Start Date End Date Jaspal Ramos MD [address] [place] [address] PCP - General 03/05/09
== END 2025-04-21 08:47 | disposition home or self-care (01) ==
LOC: HO.HSMS 08:18
PROVIDERS: PCP Internal Medicine; Visit Provider Psychiatry & Neurology Neurology
DX: G25.0 Essential tremor (principal); G25.2 Other specified forms of tremor
CPT/HCPCS: 99214

== ENCOUNTER → 2025-04-21 08:18 | Outpatient (BNVA) | payer OTHER, SELFPAY | PROVIDERS: PCP Internal Medicine; Visit Provider Psychiatry & Neurology Neurology | DX: G25.0 Essential tremor (principal); G25.2 Other specified forms of tremor; Z79.899 Other long term (current) drug therapy | CPT/HCPCS: 99212 ==